=== PATIENT | male | born 1970 ===

== ENCOUNTER → 2024-04-06 | Day surgery (SDC) | payer OTHER ==
[2024-03-30 09:00] LABS: HEMATOCRIT 42.1 % (39.0-48.0); HEMOGLOBIN 14.5 g/dL (13-16.00); MEAN CELL VOLUME 83.5 fL (80.0-100.00); MEAN CORPUSCULAR HEMOGLOBIN 28.9 pg (27.00-32.0); MEAN CORPUSCULAR HGB CONC 34.6 g/dl (32.0-36.0); PLATELET COUNT 305 K/uL (150-450); RED BLOOD COUNT 5.04 M/uL (4.00-6.00); RED CELL DISTRIBUTION WIDTH 13.5 % (11.5-14.5)
[2024-03-30 09:06] VITALS: BP 108/73
[2024-03-30 09:22] LABS: INR 1.01; PARTIAL THROMBOPLASTIN TIME 29.4 SECONDS (22.0-34.0)
[2024-03-30 09:28] LABS: PH,URINE 5.5 (5.0-8.0); URINE APPEARANCE Clear; URINE BILIRRUBIN Negative (NEGATIVE); URINE BLOOD Negative; URINE COLOR Yellow; URINE GLUCOSE Negative (NEGATIVE); URINE KETONE Negative (NEGATIVE); URINE LEUKOCYTE Negative; URINE NITRATE Negative; URINE PROTEIN Negative (NEGATIVE); URINE UROBILINOGEN 0.2 E.U./dl
[2024-03-30 09:33] LABS: URINE BACTERIA 6.1 uL (0.0-1933); URINE EPITHELIAL CELLS 2.2 uL (0.0-38.8)
[2024-03-30 09:45] LABS: URINE CAST 0.44 uL (0.0-1.40); URINE RBC 1.3 uL (0.0-20.8); URINE WBC 1.7 uL (0.0-23.2)
[2024-03-30 10:15] LABS: CALCIUM 9.4 mg/dL (8.5-10.1); CREATININE SERUM 1.45 mg/dL (0.70-1.30); GFR 50.91; POTASSIUM 4.15 mEq/L (3.5-5.1)
[~2024-04-06] VITALS: Ht 180.3 cm; Wt 83.9 kg
[~2024-04-06] MED LIST: BUPIVACAINE HCL/PF 0.25% 50 ML VIAL IJ ONE; CEFAZOLIN SODIUM 1,000 MG VIAL ONE; EZALLOR SPRINKL10 MG PO; FENOFIBRATE134 MG; KETO10TA2 PO; KETOROLAC TROMETHAMINE 30 MG VIAL IV ONE; KETOROLAC TROMETHAMINE 30 MG VIAL ONE; MIRALAX17 GM PO; MORPHINE SULFATE 4 MG/ML VIAL IV ONE; TRAMADOL HCL50 MG PO; TYLENOL ARTHRI650 MG PO
== END | disposition home or self-care (01) ==
LOC: ADM 03-30 08:15 → CIR.AMB 08:15
PROVIDERS: ATTEND Surgery
DX: K40.20 Bilateral inguinal hernia, without obstruction or gangrene, not specified as recurrent (principal); H52.10 Myopia, unspecified eye
CPT/HCPCS: 49650; C1781